=== PATIENT | male | born 1955 | race Caucasian/White ===

== ENCOUNTER 2019-04-19 19:46 | Inpatient (IN) | payer OTHER ==
[~2019-04-19] VITALS: Ht 188 cm; Wt 111.4 kg
[2019-04-19] MEDS ORDERED: COZAAR100 MG PO (19:52)
[2019-04-19] MEDS ORDERED: PRAVACHOL40 MG PO (19:52)
[2019-04-19] MEDS ORDERED: HCTZ25 MG PO (19:53)
[2019-04-19] MEDS ORDERED: VALTREX500 MG PO (19:53)
[2019-04-19 21:59] LABS: BASOPHILS 0.4 % (0-2); EOSINOPHILS 2.6 % (0-7); HEMATOCRIT 41.6 % (42.0-54.0); HEMOGLOBIN 14.3 g/dL (13.5-17.5); IMMATURE GRANULOCYTES 0.4 % (0-5); LYMPHOCYTES 19.6 % (15-50); MCH 30.9 pg (26.0-34.0); MCHC 34.4 g/dL (31.0-37.0); MCV 89.8 fL (80.0-100.0); MEAN PLATELET VOLUME 8.8 fL (7.4-10.4); MONOCYTES 8.2 % (2-11); NEUTROPHILS 68.8 % (40-80); PLATELET COUNT 198 10x3/uL (130-400); RBC 4.63 10x6/uL (4.20-6.10); RDW 14.1 % (11.5-14.5)
[2019-04-19 22:08] LABS: APTT 27.2 SECONDS (22.8-39.4); PROTIME 12.7 SECONDS (11.6-15.0)
[2019-04-19 22:14] LABS: ALBUMIN 3.5 g/dL (3.4-5.0); ANION GAP 11.8 mmol/L (8-16); BILIRUBIN - TOTAL 0.28 mg/dL (0.2-1.3); CALCIUM 8.5 mg/dL (8.5-10.1); CARBON DIOXIDE 28.3 mmol/L (21.0-32.0); CREATININE - SERUM 1.2 mg/dL (0.6-1.3); POTASSIUM - SERUM 4.1 mmol/L (3.5-5.1); PROTEIN - SERUM 6.7 g/dL (6.4-8.2)
[2019-04-20] VITALS (14 sets, daily range): BP systolic 108–136; BP diastolic 52–80; Ht 188 cm; Wt 111.4 kg
[2019-04-20 04:56] LABS: APPEARANCE CLEAR (CLEAR); BILIRUBIN NEGATIVE (NEGATIVE); COLOR YELLOW (YELLOW); GLUCOSE NEGATIVE (NEGATIVE); KETONE SMALL mg/dL (NEGATIVE); NITRITE NEGATIVE (NEGATIVE); PROTEIN NEGATIVE (NEGATIVE); SPECIFIC GRAVITY 1.015 (1.005-1.020); UROBILINOGEN NORMAL (NORMAL)
[2019-04-21] VITALS: BP 108/62
[2019-04-21 04:00] VITALS: BP 111/66
[2019-04-21 07:23] LABS: CALC OSMOLALITY 279 mosm/kg (275-300); CALCIUM 7.5 mg/dL (8.5-10.1); CARBON DIOXIDE 26.8 mmol/L (21.0-32.0); CHLORIDE - SERUM 105 mmol/L (98-107); GLUCOSE 121 mg/dL (74-106); SODIUM 139 mmol/L (136-145); eGFR NON AFRICAN AMERICAN 80 mL/min (90-120)
[2019-04-21 07:26] LABS: UREA NITROGEN 14 mg/dL (7-18)
[2019-04-21 08:35] LABS: BASOPHILS 0.2 % (0-2); EOSINOPHILS 0.8 % (0-7); HEMATOCRIT 35.9 % (42.0-54.0); HEMOGLOBIN 12.1 g/dL (13.5-17.5); IMMATURE GRANULOCYTES 0.3 % (0-5); LYMPHOCYTES 12.7 % (15-50); MCH 30.9 pg (26.0-34.0); MCHC 33.7 g/dL (31.0-37.0); MCV 91.6 fL (80.0-100.0); MEAN PLATELET VOLUME 9.3 fL (7.4-10.4); MONOCYTES 11.8 % (2-11); NEUTROPHILS 74.2 % (40-80); PLATELET COUNT 196 10x3/uL (130-400); RBC 3.92 10x6/uL (4.20-6.10); RDW 14.2 % (11.5-14.5); WBC 10.5 10x3/uL (4.8-10.8)
[2019-04-21 08:58] VITALS: BP 128/67
[2019-04-21 12:32] VITALS: BP 141/66
[2019-04-21 20:00] VITALS: BP 122/55
[2019-04-22] VITALS: BP 107/64
[2019-04-22 04:00] VITALS: BP 118/65
[2019-04-22 06:58] LABS: BASOPHILS 0.2 % (0-2); EOSINOPHILS 2.3 % (0-7); HEMATOCRIT 35.4 % (42.0-54.0); HEMOGLOBIN 12.1 g/dL (13.5-17.5); IMMATURE GRANULOCYTES 0.3 % (0-5); LYMPHOCYTES 18.6 % (15-50); MCH 30.7 pg (26.0-34.0); MCHC 34.2 g/dL (31.0-37.0); MCV 89.8 fL (80.0-100.0); MEAN PLATELET VOLUME 9.4 fL (7.4-10.4); MONOCYTES 10.9 % (2-11); NEUTROPHILS 67.7 % (40-80); PLATELET COUNT 205 10x3/uL (130-400); RBC 3.94 10x6/uL (4.20-6.10); RDW 13.9 % (11.5-14.5); WBC 8.8 10x3/uL (4.8-10.8)
[2019-04-22 09:15] VITALS: BP 130/59
[2019-04-22 13:10] VITALS: BP 112/68
[2019-04-22 16:22] VITALS: BP 126/67
[2019-04-22 20:00] VITALS: BP 129/69
[2019-04-23] VITALS: BP 132/67
[2019-04-23 04:00] VITALS: BP 135/69
[2019-04-23 05:24] LABS: BASOPHILS 0.5 % (0-2); EOSINOPHILS 2.6 % (0-7); HEMATOCRIT 36.4 % (42.0-54.0); HEMOGLOBIN 12.2 g/dL (13.5-17.5); IMMATURE GRANULOCYTES 0.4 % (0-5); LYMPHOCYTES 19.7 % (15-50); MCHC 33.5 g/dL (31.0-37.0); MCV 89.4 fL (80.0-100.0); MEAN PLATELET VOLUME 9.3 fL (7.4-10.4); MONOCYTES 10.7 % (2-11); NEUTROPHILS 66.1 % (40-80); PLATELET COUNT 231 10x3/uL (130-400); RBC 4.07 10x6/uL (4.20-6.10); RDW 13.9 % (11.5-14.5); WBC 8.5 10x3/uL (4.8-10.8)
[2019-04-23 08:46] VITALS: BP 136/74
[2019-04-23] MEDS ORDERED: VIBRAMYCIN 100100 MG PO (09:18)
[2019-04-23] MEDS ORDERED: BACTRIM DS PO (09:19)
[2019-04-23] MEDS ORDERED: FLORAJEN3 CAPS460 MG PO (09:20)
[2019-04-23] MEDS ORDERED: NORCO-7.5 PO (09:21)
--- NOTE | 2019-04-23 11:41 | MORECARE ---
CASE MANAGEMENT DISCHARGE SUMMARY PATIENT: RADHIKA SALCEDO UNIT: [id number] ADM DATE: 04/19/19 AGE: 63 : 55 SEX: M ROOM/BED: D.2211 AUTHOR: TANVI HOUSTON PHYSICIAN: REFERRING PHYSICIAN: HUMBERTO FERGUSON MD DATE OF SERVICE: 04/23/19 Discharge Plan Patient Name: RADHIKA SALCEDO [facility] [facility] 1955 Planned Disposition: Home Health Service Anticipated Discharge Date: Discharge Date: Expected LOS: Initial Reviewer: [email or web address] Initial Review Date: 04/19/2019 Generated: 04/23/19 12:41 pm Patient Name: RADHIKA SALCEDO Page 50768 at 1141 All edits/amendments must be made on the electronic document DICTATION DATE: 04/23/19 1141 IT ANALYST: GUS 04/23/19 1141 RPT#: [id number] DC DATE: STATUS: ADM IN [facility] [address] [place] [address] END OF REPORT
--- NOTE | 2019-04-23 11:48 | MORECARE ---
CASE MANAGEMENT DISCHARGE SUMMARY PATIENT: RADHIKA SALCEDO UNIT: [id number] ADM DATE: 04/19/19 AGE: 63 : 55 SEX: M ROOM/BED: D.2211 AUTHOR: TANVI HOUSTON PHYSICIAN: REFERRING PHYSICIAN: HUMBERTO FERGUSON MD DATE OF SERVICE: 04/23/19 Discharge Plan Patient Name: RADHIKA SALCEDO Facility: [facility]:[place] : 1955 Planned Disposition: Home Health Service Anticipated Discharge Date: Discharge Date: Expected LOS: Initial Reviewer: [id number] Initial Review Date: 04/19/2019 Generated: 04/23/19 12:48 pm Comments DCP- Discharge Planning Updated by [email or web address]: Lisha Gregory on 04/23/19 10:[address] Patient Name: RADHIKA SALCEDO Admission Status: ER Accout number: [id number] Admission Date: 04-19-2019 : 1955 Admission Diagnosis:DISPL COMMNT FX SHAFT OF R TIBIA, INIT FOR OPN FX TYPE Attending: HUMBERTO FERGUSON Current LOS: 4 Anticipated DC Date: Planned Disposition: Home Health Service Primary Insurance: [employer] POS Discharge Planning Comments: CM met with patient to complete initial dc planning assessment. CM educated patient on the CM role and verbal consent given by patient to complete assessment. Patient lives at home with his where he is independent with his care. At discharge patient plans to return home and feels this is a safe discharge. CM discussed availability of home health, rehab services, and medical equipment. His was buying him a walker and he will have home health, BHARGAV with [employer]. Patient denied known discharge needs at this time. Marely (patient's ) will be driving the patient home today. CM will continue to follow and will assist as needed with dc plans/needs. Yard Clerk: Lisha Gregory DCPIA - Discharge Planning Initial Assessment Updated by [email or web address]: Lisha Gregory on 04/23/19 11:43 am * Is the patient Alert and Oriented? Yes * How many steps to enter\exit or inside your home? * PCP ADALBERTO * [facility] [address] * Preadmission Environment Home with Family * ADLs Independent * Equipment Rolling Walker * List name and contact numbers for known caregivers / representatives who currently or will assist patient after discharge: KITTY () [phone] * Verbal permission to speak to the caregivers and representatives has been obtained from the patient. N/A * Community resources currently utilized None * Additional services required to return to the preadmission environment? Yes * Can the patient safely return to the preadmission environment? Yes * Has this patient been hospitalized within the prior 30 days at any hospital? No Last DP export: 04/23/19 10:41 a Patient Name: RADHIKA SALCEDO Page 30090 at 1148 All edits/amendments must be made on the electronic document DICTATION DATE: 04/23/191146 SUPERVISOR PACKING ROOM: GUS 04/23/191146 RPT#: [id number] DC DATE: STATUS: ADM IN [address] [place] [address] END OF REPORT
--- NOTE | 2019-04-23 11:55 | MORECARE ---
CASE MANAGEMENT DISCHARGE SUMMARY PATIENT: RADHIKA SALCEDO UNIT: [id number] ADM DATE: 04/19/19 AGE: 63 : 55 SEX: M ROOM/BED: D.2211 AUTHOR: TANVI HOUSTON PHYSICIAN: REFERRING PHYSICIAN: HUMBERTO FERGUSON MD DATE OF SERVICE: 04/23/19 Discharge Plan Patient Name: RADHIKA SALCEDO Facility: [facility]:[place] : 1955 Planned Disposition: Home Health Service Anticipated Discharge Date: Discharge Date: Expected LOS: Initial Reviewer: [email or web address] Initial Review Date: 04/19/2019 Generated: 04/23/19 12:55 pm Comments DCP- Discharge Planning Updated by [id number]: Lisha Gregory on 04/23/19 10:[address] Patient Name: RADHIKA SALCEDO Admission Status: ER Accout number: [id number] Admission Date: 04-19-2019 : 1955 Admission Diagnosis:DISPL COMMNT FX SHAFT OF R TIBIA, INIT FOR OPN FX TYPE Attending: HUMBERTO FERGUSON Current LOS: 4 Anticipated DC Date: Planned Disposition: Home Health Service Primary Insurance: [employer] POS Discharge Planning Comments: CM met with patient to complete initial dc planning assessment. CM educated patient on the CM role and verbal consent given by patient to complete assessment. Patient lives at home with his where he is independent with his care. At discharge patient plans to return home and feels this is a safe discharge. CM discussed availability of home health, rehab services, and medical equipment. His was buying him a walker and he will have home health, JAMIL with [employer]. Patient denied known discharge needs at this time. Marely (patient's ) will be driving the patient home today. CM will continue to follow and will assist as needed with dc plans/needs. Crab Fisherman: Lisha Gregory DCPIA - Discharge Planning Initial Assessment Updated by [email or web address]: Lisha Gregory on 04/23/19 11:43 am * Is the patient Alert and Oriented? Yes * How many steps to enter\exit or inside your home? * PCP ADALBERTO * [facility] [address] * Preadmission Environment Home with Family * ADLs Independent * Equipment Rolling Walker * List name and contact numbers for known caregivers / representatives who currently or will assist patient after discharge: KITTY () [phone] * Verbal permission to speak to the caregivers and representatives has been obtained from the patient. N/A * Community resources currently utilized None * Additional services required to return to the preadmission environment? Yes * Can the patient safely return to the preadmission environment? Yes * Has this patient been hospitalized within the prior 30 days at any hospital? No External Providers [facility] Next Contact Date: Service Request Date: Service Type: Resolution: Reviewer: Comments: Coverage Notice Reviewer: [email or web address] Deloris Gregory Notice Issued Date-Time: 04/23/2019 11:30 Notice Type: Patient Choice Letter Notice Delivered To: Patient Relationship to Patient: Machine Stone Polisher Name: Delivery Method: HAND - Hand Delivered Maryana Days: Prior Verbal Notification: Recipient Understood Notice: Yes Recipient Signature: Yes Med Rec Note Co-signed by Attending: Coverage Notice Comment: jaiml with hillary [facility] DP export: 04/23/19 10:48 a Patient Name: RADHIKA SALCEDO Page 94691 at 1155 All edits/amendments must be made on the electronic document DICTATION DATE: 04/23/19 115 CONCRETE TILE MACHINE OPERATOR: GUS 04/23/19 1154 RPT#: [id number] DC DATE: STATUS: ADM IN [facility] [address] [place] [address] END OF REPORT
[2019-04-23 12:08] VITALS: BP 140/71
== END 2019-04-23 15:26 | disposition home health service (06) | DRG 494 ==
LOC: D.ER 19:46 → D.MS 21:49
PROVIDERS: Family Medicine; ADMIT Orthopaedic Surgery; ATTEND Orthopaedic Surgery
PROC: 0QHG06Z Insertion of Intramedullary Internal Fixation Device into Right Tibia, Open Approach (ICD-10-PCS; principal; 2019-04-20)
DX: S82.251B Displaced comminuted fracture of shaft of right tibia, initial encounter for open fracture type I or II (principal); W20.8XXA Other cause of strike by thrown, projected or falling object, initial encounter; I10 Essential (primary) hypertension

== ENCOUNTER 2019-05-01 16:43 | Inpatient (IN) | payer OTHER ==
[~2019-05-01] VITALS: Ht 185.4 cm; Wt 108.9 kg
[~2019-05-01 16:43] MED LIST: BACTRIM DS PO; COZAAR100 MG PO; FLORAJEN3 CAPS460 MG PO; HCTZ25 MG PO; NORCO-7.5 PO; PRAVACHOL40 MG PO; VALTREX500 MG PO; VIBRAMYCIN 100100 MG PO
--- NOTE | 2019-05-01 17:00 | NUR ---
RECEIVED PATIENT TO ROOM [address] FERGUSON OFFICE. A/O X3. INCISION TO RIGHT KNEE IS CLEAN AND DRY. WOUND TO RIGHT LOWER LEG IS CLOSED BUT HAS SOME CLIPS AND SUTURES IN PLACE. APPROXIMATLY 2 INCHES LONG. IV SITED TO RIGHT FOREARM AFTER 2 ATTEMPTS WITH 22G. AT BEDSIDE. DENIES NEEDS OF PAIN AT THIS TIME.
[2019-05-01 17:10] VITALS: BP 132/72; BMI 31.7
--- NOTE | 2019-05-01 19:28 | NUR ---
ATE ALL OF SUPPER. NO CHANGES NOTED.
[2019-05-01 20:00] VITALS: BP 105/49
[2019-05-02] VITALS: BP 109/54
--- NOTE | 2019-05-02 02:04 | NUR ---
PT IN BED SLEEPING WITH IV IN PLACE AND PATEN WITH 1/2 NS AT 30 TO RIGHT FA. NPO AT MIDNIGHT. NO S/SOF DISTRESS. ALERT AND ORENTED ABLE TO VOICE NEEDS AND WANTS TO STAFF. WILL CONTIUE WITH PLAIN OF CARE.
--- NOTE | 2019-05-02 07:45 | NUR ---
PT RESTING IN BED WATCHING TV. VOICES UPCOMING SURGICAL PROCEDURE AND BEING NPO SINCE MIDNIGHT. NO ACUTE DISTRESS NOTED. DENIES PAIN AT THIS TIME. IV TO RIGHT FOREARM WITH 1/2 NS @ 30 ML/HR INFUSING VIA PUMP. SITE WITHOUT REDNESS OR EDEMA. HEALING INCISION TO RIGHT KNEE, DRESSING C/D/I TO RIGHT LOWER LEG. DENIES FURTHER NEEDS AT THIS TIME. CL WITHIN REACH. ENCOURAGED TO CALL WITH NEEDS. CONTINUE POC
[2019-05-02 09:20] VITALS: BP 122/62
[2019-05-02 12:24] VITALS: BP 103/58
[2019-05-02 12:31] VITALS: Ht 185.4 cm; Wt 108.9 kg
[2019-05-02 18:13] LABS: ALBUMIN 3.2 g/dL (3.4-5.0); ALKALINE PHOSPHATASE 71 U/L (46-116); ALT (SGPT) 24 U/L (10-68); BILIRUBIN - TOTAL 0.59 mg/dL (0.2-1.3); CALC OSMOLALITY 278 mosm/kg (275-300); CALCIUM 8.3 mg/dL (8.5-10.1); CARBON DIOXIDE 27.2 mmol/L (21.0-32.0); CHLORIDE - SERUM 104 mmol/L (98-107); CREATININE - SERUM 0.9 mg/dL (0.6-1.3); GLUCOSE 88 mg/dL (74-106); POTASSIUM - SERUM 4.1 mmol/L (3.5-5.1); PROTEIN - SERUM 5.9 g/dL (6.4-8.2); SODIUM 139 mmol/L (136-145); UREA NITROGEN 17 mg/dL (7-18); eGFR NON AFRICAN AMERICAN > 90 mL/min (90-120)
[2019-05-02 18:46] VITALS: BP 126/67
[2019-05-02 20:34] VITALS: BP 150/69
--- NOTE | 2019-05-02 20:35 | NUR ---
RECEIVED PT FROM OR VIA STRETCHER. ALERT AND ORIENTED X4. C/O PAIN IN IN RLE 10 . MEDICATED WITH MORPHINE ORDERED. KARAN WRAP TO RLE WITH HEMOVAC DRAIN WITH BLOODY DRAINAGE. PEDAL PULSES GOOD BILAT. NO EDEMA NOTED. IV INFUSING IN LT HAND WITHOUT DIFF. V/S STABLE. SR ELEVATED X2. AT BEDSIDE. CL IN REACH.
[2019-05-02 22:19] VITALS: BP 150/69
--- NOTE | 2019-05-03 01:48 | NUR ---
RESTING QUIETLY WITH EYES CLOSED. NO DISTRESS. RESP EVEN AND NONLABORED. REFUSED TO KEEP PLEXI BOOT ON EARLIER BECAUSE IT WAS HURTING. CL IN REACH.
[2019-05-03 02:02] VITALS: BP 114/56
[2019-05-03 04:06] LABS: BASOPHILS 0.3 % (0-2); EOSINOPHILS 0 % (0-7); HEMATOCRIT 36.4 % (42.0-54.0); HEMOGLOBIN 12.2 g/dL (13.5-17.5); IMMATURE GRANULOCYTES 0.5 % (0-5); LYMPHOCYTES 13.2 % (15-50); MCHC 33.5 g/dL (31.0-37.0); MCV 89.7 fL (80.0-100.0); MEAN PLATELET VOLUME 8.2 fL (7.4-10.4); MONOCYTES 5.8 % (2-11); NEUTROPHILS 80.2 % (40-80); RBC 4.06 10x6/uL (4.20-6.10); RDW 13.4 % (11.5-14.5); WBC 7.7 10x3/uL (4.8-10.8)
[2019-05-03 04:07] LABS: PLATELET COUNT 297 10x3/uL (130-400)
[2019-05-03 04:20] LABS: ALBUMIN 2.8 g/dL (3.4-5.0); ANION GAP 12.6 mmol/L (8-16); BILIRUBIN - TOTAL 0.36 mg/dL (0.2-1.3); CALCIUM 8.3 mg/dL (8.5-10.1); CARBON DIOXIDE 26.3 mmol/L (21.0-32.0); CREATININE - SERUM 1.1 mg/dL (0.6-1.3)
[2019-05-03 04:27] LABS: POTASSIUM - SERUM 4.9 mmol/L (3.5-5.1)
[2019-05-03 05:04] VITALS: BP 127/82
[2019-05-03 09:37] VITALS: BP 136/66
[2019-05-03 13:07] VITALS: BP 95/43
--- NOTE | 2019-05-03 14:54 | MORECARE ---
CASE MANAGEMENT DISCHARGE SUMMARY PATIENT: RADHIKA SALCEDO UNIT: [id number] ADM DATE: 05/01/19 AGE: 63 : 55 SEX: M ROOM/BED: D.2203 AUTHOR: TANVI HOUSTON PHYSICIAN: REFERRING PHYSICIAN: HUMBERTO FERGUSON MD DATE OF SERVICE: 05/03/19 Discharge Plan Patient Name: RADHIKA SALCEDO [facility] [facility] 1955 Planned Disposition: Home Health Service Anticipated Discharge Date: Discharge Date: Expected LOS: Initial Reviewer: [email or web address] Initial Review Date: 05/01/2019 Generated: 05/03/19 3:54 pm DCPIA - Discharge Planning Initial Assessment Updated by [email or web address]: Lisha Gregory on 05/03/19 2:51 pm * Is the patient Alert and Oriented? Yes * How many steps to enter\exit or inside your home? * PCP Anisha * [facility] * Preadmission Environment Home with Family * ADLs Independent * Equipment Rolling Walker * List name and contact numbers for known caregivers / representatives who currently or will assist patient after discharge: Gillian Salcedo [phone] * Verbal permission to speak to the caregivers and representatives has been obtained from the patient. Yes * Community resources currently utilized Home Health * Please name any agencies selected above. [facility] * Additional services required to return to the preadmission environment? Yes * Can the patient safely return to the preadmission environment? Yes * Has this patient been hospitalized within the prior 30 days at any hospital? Yes Patient Name: RADHIKA SALCEDO Page 03407 at 1454 All edits/amendments must be made on the electronic document DICTATION DATE: 05/03/19 1454 MEETING/EVENT PLANNER: GUS 05/03/19 1454 RPT#: [id number] DC DATE: STATUS: ADM IN [facility] [address] [place] [address] END OF REPORT
--- NOTE | 2019-05-03 15:03 | MORECARE ---
CASE MANAGEMENT DISCHARGE SUMMARY PATIENT: RADHIKA SALCEDO UNIT: [id number] ADM DATE: 05/01/19 AGE: 63 : 55 SEX: M ROOM/BED: D.2203 AUTHOR: TANVI HOUSTON PHYSICIAN: REFERRING PHYSICIAN: HUMBERTO FERGUSON MD DATE OF SERVICE: 05/03/19 Discharge Plan Patient Name: RADHIKA SALCEDO Facility: [facility]:[place] : 1955 Planned Disposition: Home Health Service Anticipated Discharge Date: Discharge Date: Expected LOS: Initial Reviewer: [email or web address] Initial Review Date: 05/01/2019 Generated: 05/03/19 4:02 pm Comments DCP- Discharge Planning Updated by [email or web address]: Lisha Gregory on 05/03/19 1:[address] Patient Name: RADHIKA SALCEDO Admission Status: Urgent Accout number: [id number] Admission Date: 05-01-2019 : 1955 Admission Diagnosis: Attending: HUMBERTO FERGUSON Current LOS: 2 Anticipated DC Date: Planned Disposition: Home Health Service Primary Insurance: [employer] POS Discharge Planning Comments: CM met with patient to complete initial dc planning assessment. CM educated patient on the CM role and verbal consent given by patient to complete assessment. Patient lives at home with his where he was independent with his care. At discharge patient plans to return home and feels this is a safe discharge. CM discussed availability of home health, rehab services, and medical equipment. He is current with [employer] ( JAMIL signed and in chart) He will need iv abx for 3 weeks. He does not care what company to use, just needs to take his insurance and the cheapest. Patient has a walker at home. He would like either crutches or a wheelchair, because he drags his foot. Will speak with MD to see what he wants him to have. CM will continue to follow and will assist as needed with dc plans/needs. Steamfitter: Lisha Gregroy DCPIA - Discharge Planning Initial Assessment Updated by [id number]: Lisha Gregory on 05/03/19 2:51 pm * Is the patient Alert and Oriented? Yes * How many steps to enter\exit or inside your home? * PCP Anisha * [facility] * Preadmission Environment Home with Family * ADLs Independent * Equipment Rolling Walker * List name and contact numbers for known caregivers / representatives who currently or will assist patient after discharge: Gillian Salcedo [phone] * Verbal permission to speak to the caregivers and representatives has been obtained from the patient. Yes * Community resources currently utilized Home Health * Please name any agencies selected above. [facility] * Additional services required to return to the preadmission environment? Yes * Can the patient safely return to the preadmission environment? Yes * Has this patient been hospitalized within the prior 30 days at any hospital? Yes Coverage Notice Reviewer: [id number] Deloris Gregory Notice Issued Date-Time: 05/03/2019 14:20 Notice Type: Patient Choice Letter Notice Delivered To: Patient Relationship to Patient: Garment Alteration Examiner Name: Delivery Method: HAND - Hand Delivered Maryana Days: Prior Verbal Notification: Recipient Understood Notice: Yes Recipient Signature: Yes Med Rec Note Co-signed by Attending: Coverage Notice Comment: jamil with hillary (current) Last DP export: 05/03/19 1:54 pm Patient Name: RADHIKA SALCEDO Page 73326 at 1503 All edits/amendments must be made on the electronic document DICTATION DATE: 05/03/19 150 NUT SIFTER: GUS 05/03/19 150 RPT#: [id number] DC DATE: STATUS: ADM IN [facility] [address] [place] [address] END OF REPORT
[2019-05-03 18:14] VITALS: BP 119/56
--- NOTE | 2019-05-03 20:00 | NUR ---
ALERT REATING IN BED, KARAN WRAP AND HEMIVAC DRAIN IN PLACE TO RIGHT LOWER LEG, REQUSTING TYLENOL FOR PAIN, GIVEN, SEE SHIFT ASSESSMENT, CALL LIGHT IN REACH
[2019-05-03 20:43] VITALS: BP 108/54
[2019-05-04 00:50] VITALS: BP 103/48
[2019-05-04 05:37] VITALS: BP 106/58
[2019-05-04 06:42] LABS: BASOPHILS 0.3 % (0-2); EOSINOPHILS 2.2 % (0-7); HEMATOCRIT 36.7 % (42.0-54.0); HEMOGLOBIN 12.1 g/dL (13.5-17.5); IMMATURE GRANULOCYTES 0.6 % (0-5); LYMPHOCYTES 32.6 % (15-50); MCV 90.8 fL (80.0-100.0); MEAN PLATELET VOLUME 8.7 fL (7.4-10.4); MONOCYTES 9.3 % (2-11); PLATELET COUNT 316 10x3/uL (130-400); RBC 4.04 10x6/uL (4.20-6.10); RDW 13.9 % (11.5-14.5); WBC 6.9 10x3/uL (4.8-10.8)
[2019-05-04 07:13] LABS: ALBUMIN 2.9 g/dL (3.4-5.0); ANION GAP 13.2 mmol/L (8-16); BILIRUBIN - TOTAL 0.3 mg/dL (0.2-1.3); CALCIUM 8.6 mg/dL (8.5-10.1); CARBON DIOXIDE 26.7 mmol/L (21.0-32.0); CREATININE - SERUM 1.1 mg/dL (0.6-1.3); PROTEIN - SERUM 6.1 g/dL (6.4-8.2)
[2019-05-04 07:17] LABS: POTASSIUM - SERUM 3.9 mmol/L (3.5-5.1)
--- NOTE | 2019-05-04 07:44 | NUR ---
AWAKE AND ALERT. ORIENTED X3. NO C/O AT THIS TIME. DR. FERGUSON'S NURSE HERE AND D/C HEMIVAC AND CHANGED DRESSING TO RIGHT LE. INCISION IS CLEAN AND DRY. SKIN IS INTACT WITHOUT REDNESS EXCEPT FOR INCISION. LUNGS ARE CLEAR BILATERLLY, NO COUGH NOTED. SL TO LEFT HAND IS PATENT WITHOUT REDNESS AT INSERTION SITE. NO BM YET BUT THINKS HE WILL GO SOON. WILL MONITOR. DENIES NEEDS.
[2019-05-04 08:28] VITALS: BP 119/70
--- NOTE | 2019-05-04 09:30 | NUR ---
ATE MOST OF BREAKFAST. DENIES NEEDS. AT BEDSIDE.
[2019-05-04 12:42] VITALS: BP 110/60
[2019-05-04] MEDS ORDERED: NORCO-7.5 PO (13:11)
[2019-05-04] MEDS ORDERED: ZYVOX600 MG PO (13:12)
--- NOTE | 2019-05-04 14:34 | MORECARE ---
CASE MANAGEMENT DISCHARGE SUMMARY PATIENT: RADHIKA SALCEDO UNIT: [id number] ADM DATE: 05/01/19 AGE: 63 : 55 SEX: M ROOM/BED: D.2203 AUTHOR: TANVI HOUSTON PHYSICIAN: REFERRING PHYSICIAN: HUMBERTO FERGUSON MD DATE OF SERVICE: 05/04/19 Discharge Plan Patient Name: RADHIKA SALCEDO Facility: [facility]:[place] : 1955 Planned Disposition: Home Health Service Anticipated Discharge Date: Discharge Date: Expected LOS: Initial Reviewer: [email or web address] Initial Review Date: 05/01/2019 Generated: 05/04/19 3:34 pm Comments DCP- Discharge Planning Updated by [email or web address]: Lisha Gregory on 05/03/19 1:[address] Patient Name: RADHIKA SALCEDO Admission Status: Urgent Accout number: [id number] Admission Date: 05-01-2019 : 1955 Admission Diagnosis: Attending: HUMBERTO FERGUSON Current LOS: 2 Anticipated DC Date: Planned Disposition: Home Health Service Primary Insurance: [employer] POS Discharge Planning Comments: CM met with patient to complete initial dc planning assessment. CM educated patient on the CM role and verbal consent given by patient to complete assessment. Patient lives at home with his where he was independent with his care. At discharge patient plans to return home and feels this is a safe discharge. CM discussed availability of home health, rehab services, and medical equipment. He is current with [employer] ( JAMIL signed and in chart) He will need iv abx for 3 weeks. He does not care what company to use, just needs to take his insurance and the cheapest. Patient has a walker at home. He would like either crutches or a wheelchair, because he drags his foot. Will speak with MD to see what he wants him to have. CM will continue to follow and will assist as needed with dc plans/needs. Forest Products Teacher: Lisha Gregory DCPIA - Discharge Planning Initial Assessment Updated by [email or web address]: Lisha Gregory on 05/03/19 2:51 pm * Is the patient Alert and Oriented? Yes * How many steps to enter\exit or inside your home? * PCP Anisha * [facility] * Preadmission Environment Home with Family * ADLs Independent * Equipment Rolling Walker * List name and contact numbers for known caregivers / representatives who currently or will assist patient after discharge: Gillian Salcedo [phone] * Verbal permission to speak to the caregivers and representatives has been obtained from the patient. Yes * Community resources currently utilized Home Health * Please name any agencies selected above. [facility] * Additional services required to return to the preadmission environment? Yes * Can the patient safely return to the preadmission environment? Yes * Has this patient been hospitalized within the prior 30 days at any hospital? Yes External Providers External Provider: [facility] Next Contact Date: Service Request Date: Service Type: Resolution: Reviewer: Comments: External Provider: [facility] Next Contact Date: Service Request Date: Service Type: Resolution: Reviewer: Comments: Coverage Notice Reviewer: [email or web address] Deloris Gregory Notice Issued Date-Time: 05/03/2019 14:20 Notice Type: Patient Choice Letter Notice Delivered To: Patient Relationship to Patient: Per Diem Clerk Name: Delivery Method: HAND - Hand Delivered Maryana Days: Prior Verbal Notification: Recipient Understood Notice: Yes Recipient Signature: Yes Med Rec Note Co-signed by Attending: Coverage Notice Comment: jamil with hillary (current) Last DP export: 05/03/19 2:03 pm Patient Name: RADHIKA SALCEDO Page 51617 at 1434 All edits/amendments must be made on the electronic document DICTATION DATE: 05/04/191432 PIER RUNNER: GUS 05/04/191432 RPT#: [id number] DC DATE: STATUS: ADM IN [facility] [address] [place] [address] END OF REPORT
--- NOTE | 2019-05-04 14:43 | MORECARE ---
CASE MANAGEMENT DISCHARGE SUMMARY PATIENT: RADHIKA SALCEDO UNIT: [id number] ADM DATE: 05/01/19 AGE: 63 : 55 SEX: M ROOM/BED: D.2203 AUTHOR: TANVI HOUSTON PHYSICIAN: REFERRING PHYSICIAN: HUMBERTO FERGUSON MD DATE OF SERVICE: 05/04/19 Discharge Plan Patient Name: RADHIKA SALCEDO Facility: [facility]:[place] : 1955 Planned Disposition: Home Health Service Anticipated Discharge Date: Discharge Date: Expected LOS: Initial Reviewer: [email or web address] Initial Review Date: 05/01/2019 Generated: 05/04/19 3:42 pm Comments DCP- Discharge Planning Updated by [email or web address]: Lisha Gregory on 05/04/19 1:[address] PATIENT DISCHARGING HOME TODAY WITH ORAL ABX, HE WILL CONTINUE WITH [facility]. CRUTCHES ARE ORDERED FROM [facility] AND THEY WILL BE DELIVERED TO THE HOSPITAL. AT BEDSIDE AND WILL BE DRIVING THEM HOME DCP- Discharge Planning Updated by [id number]: Lisha Gregory on 05/03/19 1:[address] Patient Name: RADHIKA SALCEDO Admission Status: Urgent Accout number: [id number] Admission Date: 05-01-2019 : 1955 Admission Diagnosis: Attending: HUMBERTO FERGUSON Current LOS: 2 Anticipated DC Date: Planned Disposition: Home Health Service Primary Insurance: [employer] [facility] [place] Discharge Planning Comments: CM met with patient to complete initial dc planning assessment. CM educated patient on the CM role and verbal consent given by patient to complete assessment. Patient lives at home with his where he was independent with his care. At discharge patient plans to return home and feels this is a safe discharge. CM discussed availability of home health, rehab services, and medical equipment. He is current with [employer] ( JAMIL signed and in chart) He will need iv abx for 3 weeks. He does not care what company to use, just needs to take his insurance and the cheapest. Patient has a walker at home. He would like either crutches or a wheelchair, because he drags his foot. Will speak with MD to see what he wants him to have. CM will continue to follow and will assist as needed with dc plans/needs. Director Presales: Lisha Gregory DCPIA - Discharge Planning Initial Assessment Updated by [id number]: Lisha Gregory on 05/03/19 2:51 pm * Is the patient Alert and Oriented? Yes * How many steps to enter\exit or inside your home? * PCP Anisha * [facility] * Preadmission Environment Home with Family * ADLs Independent * Equipment Rolling Walker * List name and contact numbers for known caregivers / representatives who currently or will assist patient after discharge: Gillian Salcedo [phone] * Verbal permission to speak to the caregivers and representatives has been obtained from the patient. Yes * Community resources currently utilized Home Health * Please name any agencies selected above. [facility] * Additional services required to return to the preadmission environment? Yes * Can the patient safely return to the preadmission environment? Yes * Has this patient been hospitalized within the prior 30 days at any hospital? Yes Coverage Notice Reviewer: [id number] - Lisha Gregory Notice Issued Date-Time: 05/03/2019 14:20 Notice Type: Patient Choice Letter Notice Delivered To: Patient Relationship to Patient: Front Sight Attacher Name: Delivery Method: HAND - Hand Delivered Maryana Days: Prior Verbal Notification: Recipient Understood Notice: Yes Recipient Signature: Yes Med Rec Note Co-signed by Attending: Coverage Notice Comment: jamil with [facility] (current) Last DP export: 05/04/19 1:34 pm Patient Name: RADHIKA SALCEDO Page 32746 at 1443 All edits/amendments must be made on the electronic document DICTATION DATE: 05/04/19 144 INTEGRITY CONSULTANT: GUS 05/04/19 1442 RPT#: [id number] DC DATE: STATUS: ADM IN [facility] [address] [place] [address] END OF REPORT
--- NOTE | 2019-05-04 15:48 | MORECARE ---
CASE MANAGEMENT DISCHARGE SUMMARY PATIENT: RADHIKA SALCEDO UNIT: [id number] ADM DATE: 05/01/19 AGE: 63 : 55 SEX: M ROOM/BED: D.2203 AUTHOR: TANVI HOUSTON PHYSICIAN: REFERRING PHYSICIAN: HUMBERTO FERGUSON MD DATE OF SERVICE: 05/04/19 Discharge Plan Patient Name: RADHIKA SALCEDO Facility: [facility]:[place] : 1955 Planned Disposition: Home Health Service Anticipated Discharge Date: Discharge Date: Expected LOS: Initial Reviewer: [email or web address] Initial Review Date: 05/01/2019 Generated: 05/04/19 4:47 pm Comments DCP- Discharge Planning Updated by [email or web address]: Lisha Gregory on 05/04/19 1:[address] PATIENT DISCHARGING HOME TODAY WITH ORAL ABX, HE WILL CONTINUE WITH [employer]. CRUTCHES ARE ORDERED FROM [facility] AND THEY WILL BE DELIVERED TO THE HOSPITAL. AT BEDSIDE AND WILL BE DRIVING THEM HOME DCP- Discharge Planning Updated by [email or web address]: Lisha Gregory on 05/03/19 1:[address] Patient Name: RADHIKA SALCEDO Admission Status: Urgent Accout number: [id number] Admission Date: 05-01-2019 : 1955 Admission Diagnosis: Attending: HUMBERTO FERGUSON Current LOS: 2 Anticipated DC Date: Planned Disposition: Home Health Service Primary Insurance: [employer] [facility] [place] Discharge Planning Comments: CM met with patient to complete initial dc planning assessment. CM educated patient on the CM role and verbal consent given by patient to complete assessment. Patient lives at home with his where he was independent with his care. At discharge patient plans to return home and feels this is a safe discharge. CM discussed availability of home health, rehab services, and medical equipment. He is current with [facility] ( JAMIL signed and in chart) He will need iv abx for 3 weeks. He does not care what company to use, just needs to take his insurance and the cheapest. Patient has a walker at home. He would like either crutches or a wheelchair, because he drags his foot. Will speak with MD to see what he wants him to have. CM will continue to follow and will assist as needed with dc plans/needs. Pile Driving Setter: Lisha Gregory DCPIA - Discharge Planning Initial Assessment Updated by [id number]: Lisha Gregory on 05/03/19 2:51 pm * Is the patient Alert and Oriented? Yes * How many steps to enter\exit or inside your home? * PCP Anisha * [facility] * Preadmission Environment Home with Family * ADLs Independent * Equipment Rolling Walker * List name and contact numbers for known caregivers / representatives who currently or will assist patient after discharge: Gillian Salcedo [phone] * Verbal permission to speak to the caregivers and representatives has been obtained from the patient. Yes * Community resources currently utilized Home Health * Please name any agencies selected above. [facility] * Additional services required to return to the preadmission environment? Yes * Can the patient safely return to the preadmission environment? Yes * Has this patient been hospitalized within the prior 30 days at any hospital? Yes Coverage Notice Reviewer: [id number] - Lisha Gregory Notice Issued Date-Time: 05/03/2019 14:20 Notice Type: Patient Choice Letter Notice Delivered To: Patient Relationship to Patient: Service Liaison Representative Name: Delivery Method: HAND - Hand Delivered Maryana Days: Prior Verbal Notification: Recipient Understood Notice: Yes Recipient Signature: Yes Med Rec Note Co-signed by Attending: Coverage Notice Comment: [facility] with [facility] (current) Last DP export: 05/04/19 1:43 pm Patient Name: RADHIKA SALCEDO Page [id number] at 1548 All edits/amendments must be made on the electronic document DICTATION DATE: 05/04/19 1547 TENONER OPERATOR: GUS 05/04/19 1547 RPT#: [id number] DC DATE: STATUS: ADM IN [facility] [address] [place] [address] END OF REPORT
[2019-05-04 16:06] VITALS: BP 109/59
--- NOTE | 2019-05-04 16:45 | NUR ---
DISCHARGED TO HOME AMBULATORY WITH . DISCHARGE INSTRUCTIONS GIVEN BOTH VERBALLY AND WRITTEN. ALL QUESTIONS ANSWERED. PATIENT AND VERBALZED UNDERSTANDING OF SAME. NEEDED PRESCRIPTIONS GIVEN TO PATIENT. SL TO LEFT HAND D/C WITH CATHETER INTACT. ALL BELONGINGS WITH PATIENT.
--- NOTE | 2019-05-07 14:16 | MORECARE ---
CASE MANAGEMENT DISCHARGE SUMMARY PATIENT: RADHIKA SALCEDO UNIT: [id number] ADM DATE: 05/01/19 AGE: 63 : 55 SEX: M ROOM/BED: D.2203 AUTHOR: TANVI HOUSTON PHYSICIAN: REFERRING PHYSICIAN: HUMBERTO FERGUSON MD DATE OF SERVICE: 05/07/19 Discharge Plan Patient Name: RADHIKA SALCEDO Facility: [facility]:[place] : 1955 Planned Disposition: Home Health Service Anticipated Discharge Date: Discharge Date: 05/04/2019 Expected LOS: Initial Reviewer: [email or web address] Initial Review Date: 05/01/2019 Generated: 05/07/19 3:16 pm Comments DCP- Discharge Planning Updated by [email or web address]: Lisha Gregory on 05/04/19 1:[address] PATIENT DISCHARGING HOME TODAY WITH ORAL ABX, HE WILL CONTINUE WITH [facility]. CRUTCHES ARE ORDERED FROM [facility] AND THEY WILL BE DELIVERED TO THE HOSPITAL. AT BEDSIDE AND WILL BE DRIVING THEM HOME DCP- Discharge Planning Updated by [email or web address]: Lisha Gregory on 05/03/19 1:[address] Patient Name: RADHIKA SALCEDO Admission Status: Urgent Accout number: [id number] Admission Date: 05-01-2019 : 1955 Admission Diagnosis: Attending: HUMBERTO FERGUSON Current LOS: 2 Anticipated DC Date: Planned Disposition: Home Health Service Primary Insurance[facility] [facility] Discharge Planning Comments: CM met with patient to complete initial dc planning assessment. CM educated patient on the CM role and verbal consent given by patient to complete assessment. Patient lives at home with his where he was independent with his care. At discharge patient plans to return home and feels this is a safe discharge. CM discussed availability of home health, rehab services, and medical equipment. He is current with [employer] ( JAMIL signed and in chart) He will need iv abx for 3 weeks. He does not care what company to use, just needs to take his insurance and the cheapest. Patient has a walker at home. He would like either crutches or a wheelchair, because he drags his foot. Will speak with MD to see what he wants him to have. CM will continue to follow and will assist as needed with dc plans/needs. Filling Technician: Lisha Gregory DCPIA - Discharge Planning Initial Assessment Updated by [email or web address]: Lisha Gregory on 05/03/19 2:51 pm * Is the patient Alert and Oriented? Yes * How many steps to enter\exit or inside your home? * PCP Anisha * [facility] * Preadmission Environment Home with Family * ADLs Independent * Equipment Rolling Walker * List name and contact numbers for known caregivers / representatives who currently or will assist patient after discharge: Gillian Salcedo [phone] * Verbal permission to speak to the caregivers and representatives has been obtained from the patient. Yes * Community resources currently utilized Home Health * Please name any agencies selected above. [facility] * Additional services required to return to the preadmission environment? Yes * Can the patient safely return to the preadmission environment? Yes * Has this patient been hospitalized within the prior 30 days at any hospital? Yes Coverage Notice Reviewer: [id number] - Lisha Gregory Notice Issued Date-Time: 05/03/2019 14:20 Notice Type: Patient Choice Letter Notice Delivered To: Patient Relationship to Patient: Lockmaker Name: Delivery Method: HAND - Hand Delivered Maryana Days: Prior Verbal Notification: Recipient Understood Notice: Yes Recipient Signature: Yes Med Rec Note Co-signed by Attending: Coverage Notice Comment: [facility] with [facility] (current) Last DP export: 05/04/19 2:48 pm Patient Name: RADHIKA SALCEDO Page [id number] at 1416 All edits/amendments must be made on the electronic document DICTATION DATE: 05/07/195 EPOXY SPECIALIST: GUS 05/07/19 1415 RPT#: [id number] DC DATE:05/04/19 STATUS: DIS IN [facility] [address] [place] [address] END OF REPORT
== END 2019-05-04 16:45 | disposition home health service (06) | DRG 581 ==
LOC: D.MS 16:43
PROVIDERS: Emergency Medicine; ADMIT Orthopaedic Surgery; ATTEND Orthopaedic Surgery
PROC: 0JDN0ZZ Extraction of Right Lower Leg Subcutaneous Tissue and Fascia, Open Approach (ICD-10-PCS; principal; 2019-05-02 15:45)
PROC: 0Y9H0ZZ Drainage of Right Lower Leg, Open Approach (ICD-10-PCS; 2019-05-02 15:45)
DX: S81.831A Puncture wound without foreign body, right lower leg, initial encounter (principal); S80.11XA Contusion of right lower leg, initial encounter; I10 Essential (primary) hypertension; K21.9 Gastro-esophageal reflux disease without esophagitis; E66.9 Obesity, unspecified; Z68.31 Body mass index [BMI] 31.0-31.9, adult; S81.801A Unspecified open wound, right lower leg, initial encounter; B96.89 Other specified bacterial agents as the cause of diseases classified elsewhere

== ENCOUNTER → 2019-05-01 19:05 | Outpatient (CLI) | payer OTHER ==
[2019-05-01 17:10] VITALS: BMI 31.7
[~2019-05-01 19:05] MED LIST changes: +ZYVOX600 MG PO
== END | disposition home or self-care (01) ==
LOC: D.LABREF 19:05
PROVIDERS: ATTEND Orthopaedic Surgery
DX: S81.801A Unspecified open wound, right lower leg, initial encounter (principal)

== ENCOUNTER → 2019-06-06 16:15 | Outpatient (CLI) | payer OTHER ==
[2019-05-02 12:31] VITALS: BMI 31.6
[2019-06-06 17:45] LABS: BASOPHILS 0.8 % (0-2); EOSINOPHILS 2.3 % (0-7); HEMATOCRIT 35.4 % (42.0-54.0); HEMOGLOBIN 11.9 g/dL (13.5-17.5); IMMATURE GRANULOCYTES 1.2 % (0-5); LYMPHOCYTES 25.3 % (15-50); MCH 30.1 pg (26.0-34.0); MCHC 33.6 g/dL (31.0-37.0); MCV 89.4 fL (80.0-100.0); MEAN PLATELET VOLUME 9.4 fL (7.4-10.4); MONOCYTES 10.7 % (2-11); NEUTROPHILS 59.7 % (40-80); RBC 3.96 10x6/uL (4.20-6.10); RDW 15.3 % (11.5-14.5); WBC 6.5 10x3/uL (4.8-10.8)
[2019-06-06 17:48] LABS: PLATELET COUNT 248 10x3/uL (130-400)
[2019-06-06 18:46] LABS: ERYTHROCYTE SEDIMENTATION RATE 13 mm/hr (0-20)
== END | disposition home or self-care (01) ==
LOC: D.LABREF 16:15
PROVIDERS: ATTEND Clinical Nurse Specialist Family Health
DX: L03.90 Cellulitis, unspecified (principal)